=== PATIENT | female | born 1930 | race Two or more races ===

== ENCOUNTER → 2016-07-17 | Outpatient (CLI) | payer MEDICARE ==
[2015-08-03 18:30] VITALS: BP 154/57
[~2016-07-17] MED LIST: ASPI-482 PO; CARV6.25 PO; CETI10TA22 PO; DILT180C67 PO; FURO40TA4 PO; GLIP5TAB22 PO; HYDR25TA9 PO; HYDROCORTISONE28 G1 TP; LEVO112T4 PO; LIDO700A4 TP; LOSA100T6 PO; SIMV20TA3 PO
[2016-07-17 09:21] LABS: CALCIUM 9.4 mg/dL (8.5-10.1); CREATININE 1.9 mg/dL (0.6-1.0); GFR 25.1; POTASSIUM 3.8 mmol/L (3.5-5.1)
== END | disposition home or self-care (01) ==
LOC: LAB 08:15
PROVIDERS: ATTEND Internal Medicine Cardiovascular Disease
DX: I10 Essential (primary) hypertension (principal)
CPT/HCPCS: 36415; 80048

== ENCOUNTER → 2016-07-26 | Outpatient (CLI) | payer MEDICARE ==
[2015-08-03 18:30] VITALS: BP 154/57
--- NOTE | 2016-07-26 12:34 | RAD ---
Right hand, 3 views, 07/26/2016: History: Fall, right thumb swelling and bruising There is patchy bony demineralization. No acute fracture or dislocation is identified. There are mild degenerative changes. There are small bony defect with sclerotic margins and adjacent soft tissue calcifications along the radial aspects of the second and third MCP joints. The findings could be due to old trauma or an erosive form of arthritis such as gout. 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 IMPRESSION: 1. Demineralization. 2. Moderate scattered arthritic changes as described above. 3. No acute bony abnormality is detected.
== END | disposition home or self-care (01) ==
LOC: LAB 12:00
PROVIDERS: ATTEND Internal Medicine Cardiovascular Disease
DX: S60.221A Contusion of right hand, initial encounter (principal); M11.231 Other chondrocalcinosis, right wrist; M13.831 Other specified arthritis, right wrist; W19.XXXA Unspecified fall, initial encounter; Y93.89 Activity, other specified; Y92.89 Other specified places as the place of occurrence of the external cause; Y99.8 Other external cause status
CPT/HCPCS: 73130

== ENCOUNTER → 2016-08-28 | Outpatient (CLI) | payer MEDICARE ==
[2015-08-03 18:30] VITALS: BP 154/57
[2016-08-28 08:59] LABS: BASO # 0.1 x10^3/uL (0.0-0.2); BASO % 1 % (0-3); EOS # 0.3 x10^3/uL (0.0-0.7); EOS % 4 % (0-3); HEMATOCRIT 35.6 % (36.0-47.0); HEMOGLOBIN 12.1 g/dL (12.0-15.5); LYMPH # 1.1 x10^3/uL (1.0-4.8); LYMPH % 16 % (24-48); MEAN CORPUSCULAR HEMOGLOBIN 30 pg (25-35); MEAN CORPUSCULAR HGB CONC 34 g/dL (31-37); MEAN CORPUSCULAR VOLUME 87 fL (79-100); MONO # 0.6 x10^3/uL (0.0-1.1); MONO % 8 % (0-9); NEUT # 5.1 x10^3uL (1.8-7.7); NEUT % 71 % (31-73); PLATELET COUNT 319 x10^3/uL (140-400); RED BLOOD COUNT 4.08 x10^6/uL (3.50-5.40); RED CELL DISTRIBUTION WIDTH 13.4 % (11.5-14.5); WHITE BLOOD COUNT 7.2 x10^3/uL (4.0-11.0)
[2016-08-28 09:06] LABS: ALBUMIN 3.5 g/dL (3.4-5.0); CREATININE 2.6 mg/dL (0.6-1.0); GFR 17.5; PHOSPHORUS 4.7 mg/dL (2.6-4.7); POTASSIUM 3.7 mmol/L (3.5-5.1)
[2016-08-29 14:13] LABS: CREATININE PTH 2.38 mg/dL (0.57-1.00); PTH INTACT 96 pg/mL (15-65)
== END | disposition home or self-care (01) ==
LOC: LAB 08:01
PROVIDERS: ATTEND Internal Medicine Nephrology
DX: I12.9 Hypertensive chronic kidney disease with stage 1 through stage 4 chronic kidney disease, or unspecified chronic kidney disease (principal); N18.3 Chronic kidney disease, stage 3 (moderate); E11.29 Type 2 diabetes mellitus with other diabetic kidney complication; N25.81 Secondary hyperparathyroidism of renal origin; D63.1 Anemia in chronic kidney disease; R80.9 Proteinuria, unspecified; Z68.33 Body mass index [BMI] 33.0-33.9, adult
CPT/HCPCS: 36415; 80069; 82728; 83540; 83550; 83970; 85027